=== PATIENT | male | born 1995 | race Caucasian/White ===

== ENCOUNTER 2024-02-02 08:35 | Outpatient (OUT) | payer OTHER, SELFPAY ==
--- NOTE | 2024-02-02 08:47 | XR_ITS ---
[address] [address] Patient Name: KARYN HUNTER MRN: [id number] date: 1995 Sex: M Assigned Patient Location: US Current Patient Location: US Accession/Order Number: [id number] Exam Date: 02/02/2024 08:50 Report Date: 02/04/2024 11:44 At the request of: PEEWEE ADRIAN Procedure: XR abdomen 1V EXAMINATION: XR abdomen 1V HISTORY: Kidney Stone COMPARISON: No relevant comparison available. FINDINGS: KIDNEY/URETER - RIGHT: No visible renal or ureteral calcifications. KIDNEY/URETER - LEFT: No visible renal or ureteral calcifications. PELVIS: No visible ureteral calcifications. Any visible calcifications favor phleboliths. BOWEL: No abnormal dilation or deviation. BONES: No acute abnormality. OTHER: Negative. No abnormal gaseous collections. XR/XR abdomen 1V IMPRESSION: No definite urinary tract calculi Electronically authenticated by: SUKHWINDER HIGGINS Date: 02/04/2024 11:44
--- NOTE | 2024-02-02 08:47 | US_ITS ---
[address] [address] Patient Name: KARYN HUNTER MRN: [id number] date: 1995 Sex: M Assigned Patient Location: Current Patient Location: Accession/Order Number: [id number] Exam Date: 02/02/2024 09:00 Report Date: 02/04/2024 07:26 At the request of: PEEWEE ADRIAN Procedure: US renal BI EXAMINATION: US renal BI HISTORY: Kidney Stone COMPARISON: No relevant comparison available. TECHNIQUE: Ultrasound examination was performed of the bladder. FINDINGS: Right Kidney: Normal in size, contour and echotexture. No solid cortical mass, hydronephrosis or obstructing nephrolithiasis Height: 5.18 cm Length: 10.29 cm Width: 6.19 cm Left Kidney: Normal in size, contour and echotexture. No solid cortical mass, hydronephrosis or obstructing nephrolithiasis Height: 4.82 cm Length: 10.95 cm Width: 5.56 cm Visualized urinary bladder is normal in volume 334 mL US/US renal BI IMPRESSION: No nephrolithiasis Electronically authenticated by: SUKHWINDER HIGGINS Date: 02/04/2024 07:26
== END 2024-02-02 08:36 | disposition home or self-care (01) ==
LOC: US 08:41
PROVIDERS: Visit Provider Urology
DX: N20.0 Calculus of kidney (principal)
CPT/HCPCS: 74018; 76775